=== PATIENT | male | born 1990 | race Caucasian/White ===

== ENCOUNTER 2019-11-15 17:20 | Emergency (ER) | payer SELFPAY ==
[2019-11-15] MEDS ORDERED: Sulfamethoxazole/Trimethoprim 800-160 MG Tab PO ONE (17:36)
--- NOTE | 2019-11-15 17:43 | EDM.PDOC ---
ED HPI GENERAL MEDICAL PROBLEM - General Chief Complaint: Skin Complaint Stated Complaint: Can't sit down Time Seen by Provider: 11/15/19 17:25 Source of Information: Reports: Patient History Limitations: Reports: No Limitations - History of Present Illness INITIAL COMMENTS - FREE TEXT/NARRATIVE: Patient comes into the emergency department with complaints of abscess coccyx region. Patient states he noticed the area approximately day and a half ago when he noticed that approximately 1 hour ago it did break open and started producing pus. He states it is foul-smelling and does have discomfort when he does try to sit in the region otherwise he does not know it is there. He denies any nausea vomiting GI upset, diarrhea, fever, chest pain, shortness of breath, or peripheral edema. He states his been relatively healthy he has had a history of a cyst/abscess one other time in the past. And was treated with antibiotics. Patient denies COVID-19 symptoms and states is been relatively healthy Onset: Gradual - Related Data Allergies Allergy/AdvReac Type Severity Reaction Status Date / Time pollen extracts Allergy Other Verified 11/15/19 17:42 Home Meds: Home Meds Sulfamethoxazole/Trimethoprim [Bactrim Ds Tablet] 1 each PO BID 7 Days #14 tablet 11/15/19 [Rx] ED ROS GENERAL - Review of Systems Review Of Systems: Comprehensive ROS is negative, except as noted in HPI. Constitutional: Reports: No Symptoms HEENT: Reports: No Symptoms Respiratory: Reports: No Symptoms Cardiovascular: Reports: No Symptoms Endocrine: Reports: No Symptoms GI/Abdominal: Reports: No Symptoms Skin: Reports: No Symptoms Neurological: Reports: No Symptoms Psychiatric: Reports: No Symptoms Hematologic/Lymphatic: Reports: No Symptoms ED EXAM, SKIN/RASH Exam: See Below Exam Limited By: No Limitations General Appearance: Alert, WD/WN, No Apparent Distress Head: Atraumatic, Normocephalic Back Exam: Normal Inspection, Full Range of Motion Extremities: Normal Inspection, Normal Range of Motion, Non-Tender, No Pedal Edema, Normal Capillary Refill Neurological: Alert, Oriented, Normal Gait Psychiatric: Normal Affect, Normal Mood Skin: Warm, Dry, Intact, Normal Color, No Rash Location, Skin: Other (coccyx ) Characteristics: Other (fluid as well as foul-smelling mod pus. No further redness or warmth noted around the area) Associated features: Warmth, Weeping Course - Orders/Labs/Meds Orders: Active Orders 24 hr Category Date Time Status CULTURE WOUND [RM] Stat Lab 11/15/19 17:35 Ordered Sulfamethoxazole/Trimethoprim [Septra DS] Med 11/15/19 17:36 Once 1 tab PO ONETIME ONE Medication Orders Trimethoprim/Sulfamethoxazole (Septra Ds) 1 tab PO ONETIME ONE Stop: 11/15/19 17:37 Meds: Medications Generic Name Dose Route Start Last Admin Trade Name Kian PRN Reason Stop Dose Admin Trimethoprim/Sulfamethoxazole 1 tab 11/15/19 17:36 Septra Ds PO 11/15/19 17:37 ONETIME ONE Departure - Departure Time of Disposition: 17:50 Disposition: Home, Self-Care 01 Condition: Good (abcess) Clinical Impression: Abscess - Discharge Information *PRESCRIPTION DRUG MONITORING PROGRAM REVIEWED*: Not Applicable *COPY OF PRESCRIPTION DRUG MONITORING REPORT IN PATIENT HAIDER: Not Applicable Prescriptions: Sulfamethoxazole/Trimethoprim [Bactrim Ds Tablet] 1 each PO BID 7 Days #14 tablet Instructions: Skin Abscess, Probiotics, Sulfamethoxazole; Trimethoprim, SMX-TMP tablets Referrals: PCP,None [Primary Care Provider] - Additional Instructions: 1. keep the area clean and dry 2. wash the area 3-4 times a day 3. Take all antibiotics as prescribed even if feeling better 4. Take a probiotic while on antibiotics to help promote healthy GI motility 5. Activity and diet as tolerated 6. Can use Ibuprofen and tylenol for any fever or discomfort 7. Follow up with your PCP or return if symptoms progress or worsen 8. Education provided to you regarding your illness, probiotics, antibiotic prescribed 9. Call with any questions or concerns - My Orders Last 24 Hours: My Active Orders 11/15/19 17:35 CULTURE WOUND [RM] Stat 11/15/19 17:36 Sulfamethoxazole/Trimethoprim [Septra DS] 1 tab PO ONETIME ONE - Assessment/Plan Last 24 Hours: My Active Orders 11/15/19 17:35 CULTURE WOUND [RM] Stat 11/15/19 17:36 Sulfamethoxazole/Trimethoprim [Septra DS] 1 tab PO ONETIME ONE Assessment:: 1. abscess Plan: 1. Wound cleansing completed 2. Wound culture completed 3. Bactrim given in the ER and script sent with the patient 4. Education regarding wound care, dressing changes, OTC medications, activity, diet, follow up care and when to seek care if warranted provided 5. Patient was encouraged to call or return if any questions or concerns arise.
== END 2019-11-15 17:51 | disposition home or self-care (01) ==
LOC: VM.ED 17:20
DX: L02.212 Cutaneous abscess of back [any part, except buttock and flank] (principal); Z91.048 Other nonmedicinal substance allergy status
CPT/HCPCS: 87070; 99283; 99283-GF; A9270-GY